=== PATIENT | male | born 1995 | race Caucasian/White ===

== ENCOUNTER 2020-06-11 20:34 | Emergency (ER) | payer OTHER ==
[~2020-06-11] VITALS: Ht 185.4 cm; Wt 113.4 kg
[2020-06-11 20:48] VITALS: BP 109/71
== END 2020-06-11 21:15 | disposition home or self-care (01) ==
LOC: ER 20:34
DX: J45.909 Unspecified asthma, uncomplicated (principal); J00 Acute nasopharyngitis [common cold]; J33.9 Nasal polyp, unspecified; T78.40XA Allergy, unspecified, initial encounter; Z60.2 Problems related to living alone; X58.XXXA Exposure to other specified factors, initial encounter

== ENCOUNTER 2020-08-15 10:42 | Emergency (ER) | payer OTHER ==
[~2020-08-15] VITALS: Ht 185.4 cm; Wt 113.4 kg
[2020-08-15 10:46] VITALS: BP 116/75
[2020-08-15] MEDS ORDERED: ALBU18HF2 IH (11:18)
--- NOTE | 2020-08-15 11:18 | NUR ---
Patient discharged to home in stable condition. Written and verbal after care instructions given. Patient verbalizes understanding of instruction.
== END 2020-08-15 11:18 | disposition home or self-care (01) ==
LOC: ER 10:48
DX: J45.909 Unspecified asthma, uncomplicated (principal); Z76.0 Encounter for issue of repeat prescription; Z98.890 Other specified postprocedural states; Z60.2 Problems related to living alone

== ENCOUNTER 2020-11-07 22:02 | Emergency (ER) | payer OTHER ==
[~2020-11-07] VITALS: Ht 185.4 cm; Wt 117.9 kg
[~2020-11-07 22:02] MED LIST: ALBU18HF2 IH
[2020-11-07 22:07] VITALS: BP 120/78
[2020-11-07] MEDS ORDERED: ALBU6.7H9 INH (22:17)
[2020-11-07] MEDS ORDERED: PRED20TA PO (22:17)
== END 2020-11-07 22:24 | disposition home or self-care (01) ==
LOC: ER 22:04
DX: J45.909 Unspecified asthma, uncomplicated (principal); Z98.890 Other specified postprocedural states; Z60.2 Problems related to living alone; Z79.899 Other long term (current) drug therapy

== ENCOUNTER 2020-11-26 15:30 | Emergency (ER) | payer OTHER ==
[~2020-11-26] VITALS: Ht 185.4 cm; Wt 170.1 kg
[~2020-11-26 15:30] MED LIST changes: +ALBU6.7H9 INH; +PRED20TA PO
[2020-11-26 15:39] VITALS: BP 152/69
[2020-11-26] MEDS ORDERED: ALBU8.5H8 INH (15:43)
== END 2020-11-26 15:56 | disposition home or self-care (01) ==
LOC: ER 15:31
DX: J45.901 Unspecified asthma with (acute) exacerbation (principal); Z76.0 Encounter for issue of repeat prescription; Z98.890 Other specified postprocedural states; Z60.2 Problems related to living alone; Z79.899 Other long term (current) drug therapy

== ENCOUNTER 2021-01-14 03:10 | Emergency (ER) | payer SELFPAY ==
[~2021-01-14] VITALS: Ht 182.9 cm; Wt 127.0 kg
[~2021-01-14 03:10] MED LIST changes: +ALBU8.5H8 INH
[2021-01-14 03:18] VITALS: BP 152/97
[2021-01-14] MEDS: IPRATROPIUM NEB FS 0.5 MG/2.5 ML AMPUL.NEB NEB ONE (03:30)
[2021-01-14] MEDS: ALBUTEROL FS 2.5 MG/3 ML VIAL.NEB NEB ONE (03:30)
[2021-01-14] MEDS ORDERED: ALBUTEROL FS 2.5 MG/3 ML VIAL.NEB ONE (03:31)
[2021-01-14] MEDS ORDERED: IPRATROPIUM NEB FS 0.5 MG/2.5 ML AMPUL.NEB ONE (03:31)
[2021-01-14] MEDS ORDERED: PRED20TA PO (03:37)
[2021-01-14] MEDS ORDERED: predniSONE 20 MG TABLET ONE (03:41)
[2021-01-14] MEDS: predniSONE 20 MG TABLET PO ONE (03:43)
== END 2021-01-14 03:59 | disposition home or self-care (01) ==
LOC: ER 03:13
DX: J45.909 Unspecified asthma, uncomplicated (principal); Z98.890 Other specified postprocedural states; Z60.2 Problems related to living alone; Z79.899 Other long term (current) drug therapy
CPT/HCPCS: 94640; 99283; J7512

== ENCOUNTER 2021-01-19 16:03 | Emergency (ER) | payer OTHER ==
[~2021-01-19] VITALS: Ht 185.4 cm; Wt 129.7 kg
--- NOTE | 2021-01-19 16:30 | NUR ---
SOB X 1 WEEK. HX OF ASTHMA, JUST FINISHED PREDNISONE YESTERDAY, NO RELIEF INHALER NOT HELPING W SYMPTOMS WELL. OXYGEN SATURATION LEVEL IN ROOM AIR IS AT 100%. DENIES PAIN. WILL CONTINUE TO MONITOR THE PATIENT.
[2021-01-19] MEDS ORDERED: ALBUTEROL FS 2.5 MG/3 ML VIAL.NEB ONE (16:46)
[2021-01-19] MEDS ORDERED: IPRATROPIUM NEB FS 0.5 MG/2.5 ML AMPUL.NEB ONE (16:46)
--- NOTE | 2021-01-19 16:58 | NUR ---
BLOOD SPECIMEN COLLECTED AND SENT IT TO THE LAB
[2021-01-19] MEDS ORDERED: methylPREDNISolone SOD SUCC 125 MG/2ML VIAL ONE (16:59)
[2021-01-19] MEDS ORDERED: ALBUTEROL FS 2.5 MG/3 ML VIAL.NEB NEB ONE (17:00)
[2021-01-19] MEDS ORDERED: IPRATROPIUM NEB FS 0.5 MG/2.5 ML AMPUL.NEB NEB ONE (17:00)
[2021-01-19] MEDS ORDERED: methylPREDNISolone SOD SUCC 125 MG/2ML VIAL IV ONE (17:00)
[2021-01-19 17:04] LABS: BASOPHILS % (AUTO) 0.5 % (0.0-2.0); EOSINOPHILS % (AUTO) 0.2 % (0.0-6.0); HEMATOCRIT 40 % (39-51); HEMOGLOBIN 12.6 g/dL (13.5-17.5); LYMPHOCYTES # (AUTO) 1.8 /CMM (0.8-4.8); MEAN CORPUSCULAR HGB CONC 31 g/dl (31.0-36.0); MEAN CORPUSCULAR VOLUME 69 fL (80-96); MONOCYTES # (AUTO) 0.4 /CMM (0.1-1.30); NEUTROPHILS # (AUTO) 4.7 /CMM (1.8-8.9); NEUTROPHILS % (AUTO) 67.3 % (43.0-81.0); PLATELET COUNT (AUTO) 176 /CMM (150-450); RED BLOOD CELL COUNT(AUTO) 5.85 MIL/uL (4.5-6.0)
[2021-01-19 17:29] LABS: CREATININE 1.6 mg/dL (0.6-1.3); POTASSIUM 3.4 mmol/L (3.5-5.1)
[2021-01-19 17:32] LABS: CALCIUM, SERUM 8.4 mg/dL (8.5-10.1)
[2021-01-19] MEDS ORDERED: PRED50TA PO (17:43)
[2021-01-19] MEDS ORDERED: POTASSIUM CHLORIDE 20 MEQ TAB.PRT.SR PO ONE ×2 (17:55→18:00)
--- NOTE | 2021-01-19 17:58 | NUR ---
Patient discharged to home in stable condition. Written and verbal after care instructions given. Patient verbalizes understanding of instruction. Patient left ER in stable condition.
[2021-01-19 17:59] VITALS: BP 121/76
[2021-01-19 18:07] LABS: LYMPHOCYTES % (MANUAL) 28 % (16-48); MONOCYTES % (MANUAL) 7 % (0-11.0); NEUTROPHILS % (MANUAL) 65 (42-76)
== END 2021-01-19 17:59 | disposition home or self-care (01) ==
LOC: ER 16:08
DX: J45.909 Unspecified asthma, uncomplicated (principal); E87.6 Hypokalemia; Z98.890 Other specified postprocedural states; Z60.2 Problems related to living alone; Z79.899 Other long term (current) drug therapy
CPT/HCPCS: 36415; 71045; 80048; 85007; 85025; 85378; 93005; 94644; 96374; 99285; J2930

== ENCOUNTER 2021-04-10 05:24 | Inpatient (IN) | payer OTHER ==
[~2021-04-10] VITALS: Ht 185.4 cm; Wt 129.7 kg
[~2021-04-10 05:24] MED LIST changes: +PRED50TA PO
--- NOTE | 2021-04-10 05:44 | NUR ---
PATIENT TO THE ER BED 12 BIBRA 78 FROM HOME C/O FAST HEART BEATING, PAIN AND SOB.. PATIENT STATES THAT HE HAD SNORTED COCAINE AND ADMITTED TO DRINKING ALCOHOLIC BEVERAGES TODAY. HARIKA IS CONNCETED TO THE CARIDAC MONITOR. WILL CONTINUE TO MONITOR CLOSELY.
[2021-04-10] MEDS ORDERED: LORAZEPAM INJ 2 MG/ML VIAL ONE (06:22)
[2021-04-10] MEDS ORDERED: LORAZEPAM INJ 2 MG/ML VIAL IV ONE (06:30)
[2021-04-10] MEDS ORDERED: IV NS 0.9% 1,000 ML BAG IV ONE (06:30)
[2021-04-10 06:34] LABS: BASOPHILS # (AUTO) 0.1 K/uL (0.0-0.2); HEMATOCRIT 38 % (39-51); HEMOGLOBIN 12.2 g/dL (13.5-17.5); LYMPHOCYTES # (AUTO) 1.7 K/uL (0.8-4.8); LYMPHOCYTES % (AUTO) 30.4 % (20.0-44.0); MEAN CORPUSCULAR HGB CONC 32 g/dl (31.0-36.0); MEAN CORPUSCULAR VOLUME 70 fL (80-96); MONOCYTES # (AUTO) 0.5 K/uL (0.1-1.30); MONOCYTES % (AUTO) 8.6 % (2.0-12.0); NEUTROPHILS # (AUTO) 3.3 K/uL (1.8-8.9); PLATELET COUNT (AUTO) 196 K/uL (150-450); RED BLOOD CELL COUNT(AUTO) 5.45 MIL/uL (4.5-6.0); WHITE BLOOD COUNT (AUTO) 5.7 K/uL (4.3-11.0)
[2021-04-10 06:59] LABS: CALCIUM, SERUM 9.3 mg/dL (8.5-10.1); CARBON DIOXIDE 17 mmol/L (21-32); CHLORIDE 97 mmol/L (98-107); CREATININE 1.2 mg/dL (0.6-1.3); POTASSIUM 3.1 mmol/L (3.5-5.1); SODIUM SERUM 136 mmol/L (136-145); UREA NITROGEN, BLOOD 3 mg/dL (7-18)
[2021-04-10 07:00] LABS: GLUCOSE 361 mg/dL (74-106)
[2021-04-10] MEDS ORDERED: IV PREMIX NS + 40 MEQ KCL 1,000 L IV ONE (07:30)
[2021-04-10] MEDS ORDERED: POTASSIUM CHLORIDE 10 MEQ/50 ML PREMIXED IVPB FOR PERIPHERAL LINE IV ONE ×2 (07:30)
--- NOTE | 2021-04-10 07:33 | NUR ---
RECEIVED ORDER FROM DR. HERNANDEZ TO GIVE 40MEQ POTASSIUM OVER 4 HOURS, (10MEQ Q1HR X4)
[2021-04-10] MEDS ORDERED: POTASSIUM CL. PREMIX PERIPHER. 200 ML ONE (07:45)
--- NOTE | 2021-04-10 07:51 | NUR ---
MOVE SHEET SUBMITTED AND CALLED FOR ICU BED.
--- NOTE | 2021-04-10 07:53 | NUR ---
[facility] CALLED ORDERING MACHINE OPERATOR PAGED.
--- NOTE | 2021-04-10 07:55 | NUR ---
COVID SWAB DONE AND SENT TO THE LAB
[2021-04-10 07:57] LABS: MAGNESIUM 1.8 mg/dL (1.8-2.4); PHOSPHORUS 2.3 mg/dL (2.5-4.9); POTASSIUM 2.9 mmol/L (3.5-5.1)
[2021-04-10 08:19] LABS: ABG BASE EXCESS -5.5 mmol/L; ABG PCO2 26.8 mmHg (35.0-45.0); ABG PH 7.424 (7.350-7.450); ABG PO2 47.6 mmHg (75.0-100.0); SITE, ABG Other; VENT MODE, BG ROOM AIR
--- NOTE | 2021-04-10 09:00 | NUR ---
Q1 BLOOD SUGAR CHECK NOT DONE DUE TO PATIENT IS NOT ON INSULIN DRIP, THE PATIENT IS GETTING ROUTINE BMP CHECK. DR HERNANDEZ AWARE.
[2021-04-10 09:22] LABS: CALCIUM, SERUM 8.4 mg/dL (8.5-10.1); CREATININE 1.1 mg/dL (0.6-1.3); POTASSIUM 3.2 mmol/L (3.5-5.1)
[2021-04-10 09:25] LABS: MAGNESIUM 1.7 mg/dL (1.8-2.4)
[2021-04-10] MEDS ORDERED: POTASSIUM CHLORIDE 20 MEQ TAB.PRT.SR PO SCH (10:00)
[2021-04-10] MEDS ORDERED: LORAZEPAM 1 MG TABLET PO PRN (10:00)
[2021-04-10] MEDS ORDERED: Magnesium 1GM/D5W 100ML PREMIX 200 ML IV ONE (11:01)
--- NOTE | 2021-04-10 11:27 | NUR ---
DR HERNANDEZ AWARE OF BLOOD SUGAR LEVEL OF 304.
[2021-04-10] MEDS ORDERED: IV NS 0.9% 1,000 ML IV ONE (11:30)
[2021-04-10] MEDS: Magnesium 1GM/D5W 100ML PREMIX 100 ML IV SCH ×3 (11:30→12:40)
[2021-04-10 11:32] LABS: CALCIUM, SERUM 8.2 mg/dL (8.5-10.1); POTASSIUM 3.6 mmol/L (3.5-5.1)
[2021-04-10 11:35] LABS: MAGNESIUM 1.7 mg/dL (1.8-2.4); PHOSPHORUS 4.6 mg/dL (2.5-4.9)
[2021-04-10 11:40] LABS: CHOLESTEROL 122 mg/dL (<200); HDL CHOLESTEROL 36 mg/dL (40-60); LDL 71 mg/dL (0-99); THYROID STIMULATING HORMONE 0.455 uIU/mL (0.358-3.74); TRIGLYCERIDES 76 mg/dL (30-150)
--- NOTE | 2021-04-10 11:48 | NUR ---
PER DR. CARROLL PATIENT ONLY NEEDS A TELE BED. PENDING ADMISSION ORDERS.
--- NOTE | 2021-04-10 12:38 | NUR ---
REPORT GIVEN TO NURSE DEBRA
--- NOTE | 2021-04-10 13:09 | NUR ---
THE PATIENT IS IN STABLE CONDITION AND TRANSFERED TO [facility] PER [facility] POLICY.
[2021-04-10] MEDS ORDERED: MAGNESIUM HYDROXIDE 30 ML UDC PO PRN (13:30)
[2021-04-10] MEDS ORDERED: ONDANSETRON HCL/PF 4 MG/2 ML VIAL IVP PRN (13:30)
[2021-04-10] MEDS ORDERED: ACETAMINOPHEN 325 MG TABLET PO PRN (13:30)
[2021-04-10] MEDS ORDERED: MAG HYDROX/AL HYDROX/SIMETH 30 ML UDC PO PRN (13:30)
[2021-04-10] MEDS: IV NS 0.9% 1,000 ML IV SCH ×2 (13:30→21:19)
[2021-04-10] MEDS ORDERED: Z GUARD REMEDY 2 OZ OINT TP PRN (13:30)
[2021-04-10 20:00] VITALS: BP 97/64
[2021-04-11] VITALS: BP 104/63
[2021-04-11 04:00] VITALS: BP 123/61
[2021-04-11] MEDS: IV NS 0.9% 1,000 ML IV SCH (05:58)
--- NOTE | 2021-04-11 06:19 | NUR ---
[employer] COOKING NOTES AWAKE & RESPONSIVE. NOT IN ANY DISTRESS. NO SOB NOTED. DENIES ANY PAIN OR DISCOMFORT AT THIS TIME. ON TELE SR @ 89 WITH IVF INFUSING WELL. MONITORED ACCORDINGLY. CALL LIGHT WITHIN REACH. BED IN LOWEST POSITION. SR UP X 2 FOR SAFETY. WILL ENDORSE TO NEXT SHIFT.
[2021-04-11 06:21] LABS: BASOPHILS % (AUTO) 0.5 % (0.0-2.0); EOSINOPHILS % (AUTO) 4.2 % (0.0-6.0); HEMATOCRIT 37 % (39-51); HEMOGLOBIN 11.5 g/dL (13.5-17.5); LYMPHOCYTES # (AUTO) 2.2 K/uL (0.8-4.8); LYMPHOCYTES % (AUTO) 45.9 % (20.0-44.0); MEAN CORPUSCULAR HGB CONC 31 g/dl (31.0-36.0); MEAN CORPUSCULAR VOLUME 71 fL (80-96); MONOCYTES # (AUTO) 0.5 K/uL (0.1-1.30); MONOCYTES % (AUTO) 9.9 % (2.0-12.0); NEUTROPHILS # (AUTO) 1.9 K/uL (1.8-8.9); NEUTROPHILS % (AUTO) 39.5 % (43.0-81.0); PLATELET COUNT (AUTO) 192 K/uL (150-450); RED BLOOD CELL COUNT(AUTO) 5.18 MIL/uL (4.5-6.0); WHITE BLOOD COUNT (AUTO) 4.8 K/uL (4.3-11.0)
[2021-04-11 06:42] LABS: ALANINE AMINOTRANSFERASE 45 U/L (12-78); ALBUMIN 2.9 g/dL (3.4-5.0); ALKALINE PHOSPHATASE 80 U/L (46-116); ASPARTATE AMINOTRANSFERASE 16 U/L (15-37); BILIRUBIN,TOTAL 0.3 mg/dL (0.2-1.0); CALCIUM, SERUM 8.4 mg/dL (8.5-10.1); CARBON DIOXIDE 23 mmol/L (21-32); CHLORIDE 104 mmol/L (98-107); PHOSPHORUS 2.7 mg/dL (2.5-4.9); SODIUM SERUM 137 mmol/L (136-145); TOTAL PROTEIN, SERUM 6.4 g/dL (6.4-8.2)
[2021-04-11 07:16] LABS: UREA NITROGEN, BLOOD 3 mg/dL (7-18)
--- NOTE | 2021-04-11 07:32 | NUR ---
PACKER OPENING NOTES PT AWAKE & RESPONSIVE. NOT IN ANY DISTRESS. NO SOB NOTED. DENIES ANY PAIN OR DISCOMFORT AT THIS TIME. ON TELE SR @ 89 WITH IVF INFUSING WELL. PT TALKING TO FAMILY ON PHONE, CALL LIGHT WITHIN REACH. BED IN LOWEST POSITION. SR UP X 2 FOR SAFETY AND BED LOCKED.
[2021-04-11 07:51] LABS: GLUCOSE 430 mg/dL (74-106)
[2021-04-11] MEDS ORDERED: INSULIN REGULAR, HUMAN 100 UNIT/ML 10 ML VIAL SQ ONE (08:30)
[2021-04-11] MEDS ORDERED: BLOOD SUGAR DIAGNOSTIC 1 EACH STRIP VI SCH (08:30)
[2021-04-11] MEDS ORDERED: DEXTROSE 50%-WATER 50 ML DISP.SYRIN IV PRN (08:30)
[2021-04-11] MEDS ORDERED: *INSULIN REGULAR(HUMULIN R)HUM 100 UNIT/ML VIAL SQ PRN (08:30)
[2021-04-11] MEDS ORDERED: INSULIN REGULAR, HUMAN 100 UNIT/ML 3 ML VIAL SQ PRN (08:30)
[2021-04-11 08:43] VITALS: BP 130/82
[2021-04-11] MEDS ORDERED: METFORMIN 500 MG TABLET PO SCH (09:00)
[2021-04-11 09:54] LABS: EOSINOPHILS % (MANUAL) 4 % (0-4); LYMPHOCYTES % (MANUAL) 48 % (16-48); MONOCYTES % (MANUAL) 6 % (0-11.0); NEUTROPHILS % (MANUAL) 42 (42-76)
[2021-04-11] MEDS ORDERED: METF-440 PO (10:26)
--- NOTE | 2021-04-11 15:07 | NUR ---
Cargo Agent note: adoption services manager consult requested for substance use. Patient is a 25-year-old, male. SW was unable to interview patient as patient was discharged. No further SS intervention at this time, however, SW will remain available as needed.
== END 2021-04-11 13:25 | disposition home or self-care (01) | DRG 420 ==
LOC: ER 05:27 → TRANSITION 10:54 → TELE 12:29
PROVIDERS: ADMIT Internal Medicine; ATTEND Internal Medicine
DX: E11.10 Type 2 diabetes mellitus with ketoacidosis without coma (principal); E83.39 Other disorders of phosphorus metabolism; E83.42 Hypomagnesemia; I47.1 Supraventricular tachycardia; D50.9 Iron deficiency anemia, unspecified; F19.10 Other psychoactive substance abuse, uncomplicated; E87.6 Hypokalemia; Z20.822 Contact with and (suspected) exposure to COVID-19; Z87.09 Personal history of other diseases of the respiratory system; Z79.51 Long term (current) use of inhaled steroids; Z79.899 Other long term (current) drug therapy; J45.909 Unspecified asthma, uncomplicated; F41.9 Anxiety disorder, unspecified; E66.9 Obesity, unspecified; Z86.16 Personal history of COVID-19; Z68.37 Body mass index [BMI] 37.0-37.9, adult
CPT/HCPCS: 36415; 36600; 71045-TC; 80048-TC; 80053-TC; 80061-TC; 82962-TC; 83735-TC; 84100-TC; 84439-TC; 84443-TC; 84484-TC; 85025-TC; 87081-TC; 93307-TC; C9803; G0378; G0480; J1815; J2060; J3475; J3480; J3490; J7030

== ENCOUNTER 2021-09-21 08:03 | Emergency (ER) | payer OTHER ==
[~2021-09-21] VITALS: Ht 185.4 cm; Wt 108.9 kg
[~2021-09-21 08:03] MED LIST changes: -ALBU6.7H9 INH; -ALBU8.5H8 INH; +METF-440 PO; -PRED20TA PO; -PRED50TA PO
--- NOTE | 2021-09-21 08:30 | NUR ---
PT CAME TO ER C/O BODYACHES, SORE THROAT, COUGH X 2 DAYS. ADMITS NAUSEA, VOMITING, FEVER YESTERDAY. DENIES FEVER TODAY. AAOX4, ASSISTED TO ER BED 7. PT LAYING IN BED COMFORTABLY, BLANKETS GIVEN.
[2021-09-21] MEDS ORDERED: IBUPROFEN 600 MG TABLET ONE (08:52)
[2021-09-21] MEDS ORDERED: IBUPROFEN 600 MG TABLET PO ONE (09:00)
--- NOTE | 2021-09-21 09:06 | NUR ---
RAPID GROUP A STREP SCREEN AND COVID ANTIGEN WAS COLLECTED AND SENT TO THE LAB
--- NOTE | 2021-09-21 10:01 | NUR ---
PT LAYING COMFORTABLY IN BED. VS STABLE
--- NOTE | 2021-09-21 11:04 | NUR ---
PT LAYING COMFROTABLY IN BED, VS STABLE
[2021-09-21 11:28] VITALS: BP 137/89
--- NOTE | 2021-09-21 11:40 | NUR ---
Patient discharged to home in stable condition. Written and verbal after care instructions given. Patient verbalizes understanding of instruction.
== END 2021-09-21 12:16 | disposition home or self-care (01) ==
LOC: ER 08:13
DX: J06.9 Acute upper respiratory infection, unspecified (principal); Z20.822 Contact with and (suspected) exposure to COVID-19; R00.0 Tachycardia, unspecified; J45.909 Unspecified asthma, uncomplicated
CPT/HCPCS: 87070; 87426; 87880; 99283; C9803; 86403-TC